=== PATIENT | female | born 1990 | race Caucasian/White ===

== ENCOUNTER 2019-07-13 11:00 | Inpatient (IN) | payer BC ==
[2019-07-14] MEDS ORDERED: LIDOCAINE 0.5% (PF) 5 MG/ML (50 ML SDV) SQ PRN (07:05)
[2019-07-14] MEDS ORDERED: METHYLERGONOVINE 0.2 MG/ML 1 ML AMP IM PRN (07:05)
[2019-07-14] MEDS ORDERED: OXYTOCIN 10 UNIT/ML 1 ML VIAL IM PRN (07:05)
[2019-07-14] MEDS ORDERED: CARBOPROST TROMETHAMINE 250 MCG/ML 1 ML AMP IM PRN (07:05)
[2019-07-14] MEDS ORDERED: TERBUTALINE 1 MG/ML VIAL SQ PRN (07:05)
[2019-07-14] MEDS ORDERED: OXYTOCIN 30 UNITS/500 ML NS 30 UNIT in SALINE 1 500ML.BAG IV SCH (07:15)
[2019-07-14 07:34] LABS: Basophils % (A) 0 %; Eosinophils # (A) 0.3 k/uL (0-0.7); Eosinophils % (A) 3 %; HCT 36.6 % (34.0-46.0); HGB 13.3 gm/dL (11.4-16.0); Lymphocytes # (A) 2.3 k/uL (1.0-4.8); Lymphocytes % (A) 21 %; MCH 32.7 pg (25.0-35.0); MCHC 36.3 g/dL (31.0-37.0); Mean Platelet Volume 8.4; Monocytes # (A) 0.6 k/uL (0-1.0); Monocytes % (A) 5 %; Neutrophils # (A) 7.6 k/uL (1.3-7.7); Neutrophils % (A) 69 %; Platelet Count 235 k/uL (150-450); RBC 4.07 m/uL (3.80-5.40); RDW 13.5 % (11.5-15.5)
[2019-07-14] MEDS: LACTATED RINGERS 1,000 ML IV SCH ×2 (07:35→21:53)
[2019-07-14] MEDS ORDERED: SIMETHICONE 80 MG CHEWABLE PO PRN (14:40)
[2019-07-14] MEDS ORDERED: ZOLPIDEM 5 MG TAB PO PRN (14:40)
[2019-07-14] MEDS ORDERED: diphenhydrAMINE 50 MG CAP PO PRN (14:40)
[2019-07-14] MEDS ORDERED: diphenhydrAMINE 25 MG CAP PO PRN (14:40)
[2019-07-14] MEDS ORDERED: LANOLIN CREAM 5 GM TUBE TOPICAL PRN (14:40)
[2019-07-14] MEDS ORDERED: BENZOCAINE/MENTHOL SPRAY 1 GM/SPRAY AEROSOL TOPICAL PRN (14:40)
[2019-07-14] MEDS ORDERED: WITCH HAZEL 1 EACH MED..PAD TOPICAL PRN (14:40)
[2019-07-14] MEDS ORDERED: HYDROCORTISONE 2.5% RECTAL CREAM 30 GM TUBE RECTAL PRN (14:40)
[2019-07-14] MEDS ORDERED: diphenhydrAMINE 50 MG/ML 1 ML VIAL IVP PRN ×2 (14:40)
[2019-07-14] MEDS ORDERED: OXYTOCIN 20 UNITS/1000 ML NS 1,000 ML IV SCH (14:45)
[2019-07-14] MEDS: ACETAMINOPHEN TAB 325 MG TAB PO PRN ×2 (16:16→21:31)
--- NOTE | 2019-07-14 16:29 | P.HPOB ---
History of Present Illness H&P Date: 07/14/19 Chief Complaint: Intrauterine at term: Induction of labor Patient is a 28-year-old at 40 weeks gestation who ryes for induction of labor. Her course has been unremarkable and she was feeling well at this time. Pertinent labs could A+ blood type Rh and it was negative, rubella immune, hepatitis B surface antigen/RPR/HIV and quad screening were all normal. Groupie strep was also negative. Questions were answered for regarding and induction of labor and at that time she had not planned on using a epidural. Pitocin augmentation of labor was initiated and artificial rupture membranes was clear fluid is noted. A category 1 tracing is noted and she was dilated approximately 2 cm at time of rupture. Past Medical History Past Medical History: No Reported History Additional Past Medical History / Comment(s): Hx gestational diabetes, hx of Asthma childhood, no asthma meds now, liver cyst. History of Any Multi-Drug Resistant Organisms: None Reported Past Surgical History: No Surgical Hx Reported Past Anesthesia/Blood Transfusion Reactions: No Reported Reaction Additional Past Anesthesia/Blood Transfusion Reaction / Comment(s): NO PRIOR SX HX Past Psychological History: No Psychological Hx Reported Smoking Status: Current every day smoker Past Alcohol Use History: None Reported Past Drug Use History: None Reported - Past Family History Brother(s) Family Medical History: Cancer, Hyperlipidemia Additional Family Medical History / Comment(s): testicular Mother Family Medical History: Hypertension Father Family Medical History: Hyperlipidemia Medications and Allergies Home Medications Medication Instructions Recorded Confirmed Type Pnv No.95/Ferrous Fum/Folic AC 1 each PO DAILY 11/05/17 07/14/19 History [ Multivitamin Tablet] Calcium Carbonate [Tums] 500 mg PO QID PRN 07/14/19 07/14/19 History Allergies Allergy/AdvReac Type Severity Reaction Status Date / Time egg Allergy Anaphylaxis Verified 11/12/17 06:08 ibuprofen [From Motrin] Allergy Rash/Hives Verified 11/12/17 06:08 Exam Osteopathic Statement: *. No significant issues noted on an osteopathic structural exam other than those noted in the History and Physical/Consult. Vital Signs Temp Pulse Resp BP 07/14/19 15:50 98.3 F 78 17 119/68 07/14/19 15:20 78 16 121/71 07/14/19 14:50 68 16 119/68 07/14/19 14:35 71 16 120/63 07/14/19 14:20 87 17 117/65 07/14/19 14:05 70 16 113/64 07/14/19 13:50 98.4 F 70 16 109/66 07/14/19 07:29 97.5 F L 85 16 117/68 Intake and Output 07/14/19 07/14/19 07/14/19 06:59 14:59 22:59 Other: # Voids 1 Weight 69.4 kg - OBG Physical Exam Breast: both: normal (no masses) Abdomen: bowel sounds normal, no diffuse tenderness, no bruit present, no guarding noted, no hepatomegaly, no splenomegaly, no mass Vulva: both: normal Vagina: normal moisture, no discharge Cervix: no lesion, no discharge Uterus: normal size, normal contour Adnexa: both: normal Anus/Rectum: normal perianal skin, no rectal mass, no hemorrhoids, heme negative Results Result Diagrams: 07/14/19 07:05 Abnormal Lab Results - Last 24 Hours (Table) 07/14/19 Range/Units 07:05 WBC 11.0 H (3.8-10.6) k/uL
--- NOTE | 2019-07-14 16:30 | P.PROBDLV ---
Vaginal Delivery Note - . Vaginal Delivery Note: Patient breast complete and pushing with spontaneous vaginal delivery of a viable male over a superficial perineal laceration. Following delivery of the head from left occiput anterior position nuchal cord 1 was easily reduced an anterior posterior shoulders were delivered with gentle downward and upward traction. Once this was completed mouth nares were bulb suctioned and was placed on mother's abdomen where the umbilical cord was clamped and cut in usual fashion. Nursery personnel was present and assumed care. Placenta was then delivered intact and Pitocin was added to the IV. scores were 9 and 9 at one and 5 minutes respectively and the weight was 7 lbs. 11 oz. Perineal laceration was reapproximated with interrupted 3-0 Vicryl suture. Mother and baby are currently stable findings delivery.
[2019-07-14] MEDS: SENNOSIDES-DOCUSATE SODIUM 1 EACH TAB PO SCH (21:53)
[2019-07-15] MEDS ORDERED: ACETAMINOPHEN TAB 325 MG TAB ONE (01:00)
[2019-07-15 07:28] LABS: Basophils % (A) 0 %; Eosinophils # (A) 0.1 k/uL (0-0.7); Eosinophils % (A) 1 %; HCT 34.2 % (34.0-46.0); HGB 11.5 gm/dL (11.4-16.0); Lymphocytes # (A) 2.8 k/uL (1.0-4.8); Lymphocytes % (A) 21 %; MCH 30.9 pg (25.0-35.0); MCHC 33.5 g/dL (31.0-37.0); MCV 92.2 fL (80.0-100.0); Mean Platelet Volume 8.2; Monocytes # (A) 0.6 k/uL (0-1.0); Monocytes % (A) 5 %; Neutrophils # (A) 9.4 k/uL (1.3-7.7); Neutrophils % (A) 71 %; Platelet Count 214 k/uL (150-450); RBC 3.72 m/uL (3.80-5.40); RDW 13.4 % (11.5-15.5); WBC 13.2 k/uL (3.8-10.6)
[2019-07-15] MEDS: SENNOSIDES-DOCUSATE SODIUM 1 EACH TAB PO SCH (08:09)
[2019-07-15] MEDS: ACETAMINOPHEN TAB 325 MG TAB PO PRN (08:09)
[2019-07-15 08:38] VITALS: BP 107/70; PULSE 59; RESP 16; TEMP 98.6
--- NOTE | 2019-07-15 08:43 | P.DS ---
Providers Date of admission: 07/14/19 06:47 Expected date of discharge: 07/15/19 Attending physician: Toi Enciso Primary care physician: Stated None Hospital Course: Radha is doing very well day 1. She's ablating, voiding and tolerating her diet. She voices no complaints and requests discharged home. Vital signs are stable and afebrile. Heart regular, lungs clear, extremities without pain. Abdomen soft and uterus is firm. Lochia is reported light. Assessment day 1. Plan discharged home follow up with me in 6 weeks. Other discharge instructions were thoroughly reviewed all questions are answered. Patient Condition at Discharge: Good Plan - Discharge Summary New Discharge Prescriptions: No Action Pnv No.95/Ferrous Fum/Folic AC [ Multivitamin Tablet] 1 each PO DAILY Calcium Carbonate [Tums] 500 mg PO QID PRN PRN Reason: Heartburn Discharge Medication List Pnv No.95/Ferrous Fum/Folic AC [ Multivitamin Tablet] 1 each PO DAILY 11/05/17 [History] Calcium Carbonate [Tums] 500 mg PO QID PRN 07/14/19 [History] Follow up Appointment(s)/Referral(s): Toi Enciso DO [Doctor of Osteopathic Medicine] - 6 Weeks Activity/Diet/Wound Care/Special Instructions: No heavy lifting, limit stairs and driving, and pelvic rest. If any high temperatures, heavy bleeding, or severe pain call my office Discharge Disposition: HOME SELF-CARE
== END 2019-07-15 15:25 | disposition home or self-care (01) | DRG 807 ==
LOC: 4FBP 07-14 06:47
PROVIDERS: ADMIT Obstetrics & Gynecology; ATTEND Obstetrics & Gynecology
PROC: 10E0XZZ Delivery of Products of Conception, External Approach (ICD-10-PCS; principal; 2019-07-14)
PROC: 0UQMXZZ Repair Vulva, External Approach (ICD-10-PCS; principal; 2019-07-14)
DX: O69.81X0 Labor and delivery complicated by cord around neck, without compression, not applicable or unspecified (principal); Z37.0 Single live birth; O70.9 Perineal laceration during delivery, unspecified; O99.334 Smoking (tobacco) complicating childbirth; F17.200 Nicotine dependence, unspecified, uncomplicated; Z3A.40 40 weeks gestation of pregnancy; Z86.32 Personal history of gestational diabetes; Z87.09 Personal history of other diseases of the respiratory system; Z88.6 Allergy status to analgesic agent; Z91.012 Allergy to eggs; Z82.49 Family history of ischemic heart disease and other diseases of the circulatory system; Z80.9 Family history of malignant neoplasm, unspecified
CPT/HCPCS: 85025; 86850; 86900; 86901

== ENCOUNTER → 2022-02-13 | Outpatient (CLI) | payer BC ==
--- NOTE | 2022-02-13 22:18 | CT ---
EXAMINATION TYPE: CT abdomen pelvis w con DATE OF EXAM: 02/13/2022 HISTORY: lower Abdominal pain for [address] DLP: 475.20mGycm Automated Exposure Control for Dose Reduction was Utilized. CONTRAST: CT scan of the abdomen and pelvis is performed with IV Contrast, patient injected with 70 mL of Isovu e 300. COMPARISON: None. FINDINGS: LUNG BASES: No significant abnormality is appreciated. LIVER/GB: No significant abnormality is appreciated. PANCREAS: No significant abnormality is seen. SPLEEN: No significant abnormality is seen. ADRENALS: No significant abnormality is seen. KIDNEYS: No significant abnormality is seen. BOWEL: Normal appearing appendix from base of cecum in the right lower quadrant. UTERUS/ADNEXA: Anteverted uterus. Normal size ovaries. Occasional scattered tiny pelvic phlebolith. LYMPH NODES: No greater than 1cm abdominal or pelvic lymph nodes are appreciated. OSSEOUS STRUCTURES: Transitional-type vertebra at lumbosacral junction. OTHER: No significant additional abnormality is seen. IMPRESSION: No significant acute finding is seen to account for patient's clinical symptoms.
== END | disposition home or self-care (01) ==
LOC: RADCTMAIN 15:16
PROVIDERS: ATTEND Family Medicine
DX: R10.9 Unspecified abdominal pain (principal)
CPT/HCPCS: 74177; Q9967

== ENCOUNTER 2022-06-02 14:07 | Emergency (ER) | payer BC, OTHER ==
[2022-06-02] MEDS ORDERED: diphenhydrAMINE 50 MG/ML 1 ML VIAL IVP STA (15:12)
[2022-06-02] MEDS ORDERED: SODIUM CHLORIDE 0.9% 1,000 ML IV STA (15:12)
[2022-06-02] MEDS ORDERED: SODIUM CHLORIDE 0.9% 500 ML 500 ML IV STA (15:12)
--- NOTE | 2022-06-02 15:20 | ED ---
Nausea/Vomiting/Diarrhea HPI - General Source: patient, RN notes reviewed, old records reviewed Mode of arrival: ambulatory Limitations: no limitations - History of Present Illness MD complaint: nausea, vomiting, diarrhea -: month(s) (1) Description of Vomiting: food contents, watery, bilious Description of Diarrhea: water Associated Abdominal Pain: No Consistency: intermittent Associated Symptoms: fever/chills <Gui Medina - Last Filed: 07/10/22 16:25> <Jossue Adkins - Last Filed: 07/27/22 12:50> - General Chief complaint: Nausea/Vomiting/Diarrhea Stated complaint: Vomiting Time Seen by Provider: 06/02/22 14:42 - History of Present Illness Initial comments: This is a nontoxic appearing 31-year-old female who presents to the emergency room with complaints of nausea vomiting diarrhea on and off for the past month. Occasional chills but no documented fever. She states that she will have several days of resolution, then her nausea vomiting and diarrhea recurs. No known sick contracts. She states that she is 13 weeks with her last menstrual period being February 28. Denies any abdominal or pelvic pain or vaginal bleeding. States was treated by [facility] urgent care 2 weeks ago for UTI but does not remember the name of the antibiotic. States that she had multiple episodes of vomiting while taking the medication. She is a history of asthma, gestational diabetes. Currently taking vitamins. No other medication on a daily basis. (Gui Medina) - Related Data Home Medications Medication Instructions Recorded Confirmed Pnv No.95/Ferrous Fum/Folic AC 1 each PO DAILY 11/05/17 07/14/19 [ Multivitamin Tablet] Calcium Carbonate [Tums] 500 mg PO QID PRN 07/14/19 07/14/19 Allergies Allergy/AdvReac Type Severity Reaction Status Date / Time egg Allergy Anaphylaxis Verified 06/02/22 14:11 ibuprofen [From Motrin] Allergy Rash/Hives Verified 06/02/22 14:11 Review of Systems ROS Other: All systems not noted in ROS Statement are negative. <Gui Medina - Last Filed: 07/10/22 16:25> ROS Other: All systems not noted in ROS Statement are negative. <Jossue Adkins - Last Filed: 07/27/22 12:50> ROS Statement: Those systems with pertinent positive or pertinent negative responses have been documented in the HPI. Past Medical History Past Medical History: Asthma Additional Past Medical History / Comment(s): Hx gestational diabetes, hx of Asthma childhood, no asthma meds now, liver cyst. History of Any Multi-Drug Resistant Organisms: None Reported Past Surgical History: No Surgical Hx Reported Past Anesthesia/Blood Transfusion Reactions: No Reported Reaction Additional Past Anesthesia/Blood Transfusion Reaction / Comment(s): NO PRIOR SX HX Past Psychological History: No Psychological Hx Reported Smoking Status: Former smoker Past Alcohol Use History: None Reported Past Drug Use History: None Reported - Past Family History Brother(s) Family Medical History: Cancer, Hyperlipidemia Additional Family Medical History / Comment(s): testicular Mother Family Medical History: Hypertension Father Family Medical History: Hyperlipidemia <Gui Medina - Last Filed: 07/10/22 16:25> General Exam Limitations: no limitations General appearance: alert, in no apparent distress Head exam: Present: atraumatic, normocephalic, normal inspection Eye exam: Present: normal appearance. Absent: scleral icterus, conjunctival injection, periorbital swelling ENT exam: Present: mucous membranes moist Neck exam: Present: full ROM. Absent: tenderness, meningismus, lymphadenopathy, thyromegaly Respiratory exam: Present: normal lung sounds bilaterally. Absent: respiratory distress, accessory muscle use Cardiovascular Exam: Present: tachycardia GI/Abdominal exam: Present: soft. Absent: distended, tenderness, guarding, rebound, rigid Extremities exam: Present: full ROM, normal capillary refill. Absent: tenderness, pedal edema Back exam: Present: normal inspection, full ROM. Absent: tenderness, CVA tenderness (R), CVA tenderness (L), rash noted Neurological exam: Present: alert, oriented X3, normal gait Psychiatric exam: Present: normal affect, normal mood Skin exam: Present: warm, dry, normal color. Absent: cyanosis, diaphoretic, petechiae, pallor <Gui Medina - Last Filed: 07/10/22 16:25> Course Vital Signs 06/02/22 06/02/22 06/02/22 14:08 16:50 17:41 Temperature 97.9 F 98.2 F Pulse Rate 118 H 88 76 Respiratory 20 16 16 Rate Blood Pressure 114/77 120/71 121/82 O2 Sat by Pulse 98 100 100 Oximetry 06/02/22 18:40 Temperature Pulse Rate 78 Respiratory 16 Rate Blood Pressure 134/87 O2 Sat by Pulse 98 Oximetry Medical Decision Making - Lab Data Result diagrams: 06/02/22 15:27 06/02/22 16:07 <Gui Medina - Last Filed: 07/10/22 16:25> - Lab Data Result diagrams: 06/02/22 15:27 06/02/22 16:07 <Jossue Adkins - Last Filed: 07/27/22 12:50> - Medical Decision Making Urinalysis shows no evidence of infection. There is mild leukocytosis likely from patient's persistent vomiting. Awaiting additional lab results. On reassessment patient has had no further vomiting no diarrhea in the emergency room. Abdomen is soft and nontender. She is with no complaints of abdominal pain or vaginal bleeding. Case was turned over to Dr. Adkins for evaluation of pending labs and disposition. (Gui Medina) Was patient admitted / discharged? Hospital course, mention meds given and ro christel, prescriptions, significant lab abnormalities, going to OR and other pertinent info. @ -Patient was endorsed to me by ED CAROLINA Medina (secondary to end of her shift) with the patient's labs still pending. Patient's labs were reviewed myself. Other than mild leukocytosis and mild hypoglycemia, the patient's labs are fairly unremarkable. Patient's UA does not show any evidence of infection. I do not suspect an emergent medical condition at this time. Patient's symptoms have improved while in the ED. Patient's tachycardia has resolved, and her vital signs are now stable/reassuring. Will discharge patient home. Undiagnosed new problem with uncertain prognosis? @ -No Drug Therapy requiring intensive monitoring for toxicity (Heparin, Nitro, Insulin, Cardizem)? @ -No Were any procedures done? @ -No Diagnosis/symptom? @ - nausea/vomiting/diarrhea Acute, or Chronic, or Acute on Chronic? @ -Acute Uncomplicated (without systemic symptoms) or Complicated (systemic symptoms)? @ -default Side effects of treatment? @ -No Exacerbation, Progression, or Severe Exacerbation? @ -No Poses a threat to life or bodily function? How? (Chest pain, USA, CA, pneumonia, PE, COPD, DKA, ARF, appy, cholecystitis, CVA, Diverticulitis, Homicidal, Suicidal, threat to staff... and all critical care pts) @ -No (Jossue Adkins) - Lab Data Lab Results 06/02/22 06/02/22 06/02/22 Range/Units 15:27 15:27 16:07 WBC 13.6 H (3.8-10.6) k/uL RBC 4.73 (3.80-5.40) m/uL Hgb 14.5 (11.4-16.0) gm/dL Hct 39.6 (34.0-46.0) % MCV 83.7 (80.0-100.0) fL MCH 30.6 (25.0-35.0) pg MCHC 36.6 (31.0-37.0) g/dL RDW 12.9 (11.5-15.5) % Plt Count 241 (150-450) k/uL MPV 8.4 Neutrophils % 82 % Lymphocytes % 14 % Monocytes % 3 % Eosinophils % 1 % Basophils % 0 % Neutrophils # 11.1 H (1.3-7.7) k/uL Lymphocytes # 1.9 (1.0-4.8) k/uL Monocytes # 0.4 (0-1.0) k/uL Eosinophils # 0.1 (0-0.7) k/uL Basophils # 0.0 (0-0.2) k/uL Hyperchromasia Slight Sodium 134 L (137-145) mmol/L Potassium 4.3 (3.5-5.1) mmol/L Chloride 105 (98-107) mmol/L Carbon Dioxide 21 L (22-30) mmol/L Anion Gap 8 mmol/L BUN 6 L (7-17) mg/dL Creatinine 0.44 L (0.52-1.04) mg/dL Est GFR (CKD-EPI)AfAm >90 (>60 ml/min/1.73 sqM) Est GFR (CKD-EPI)NonAf >90 (>60 ml/min/1.73 sqM) Glucose 72 L (74-99) mg/dL Calcium 9.0 (8.4-10.2) mg/dL Total Bilirubin 0.5 (0.2-1.3) mg/dL AST 34 (14-36) U/L ALT 40 H (4-34) U/L Alkaline Phosphatase 65 (38-126) U/L Total Protein 6.7 (6.3-8.2) g/dL Albumin 3.9 (3.5-5.0) g/dL HCG, Quant 57395.6 mIU/mL Urine Color Yellow Urine Appearance Clear (Clear) Urine pH 5.5 (5.0-8.0) Ur Specific [place] 1.015 (1.001-1.035) Urine Protein Trace H (Negative) Urine Glucose (UA) Negative (Negative) Urine Ketones Negative (Negative) Urine Blood Negative (Negative) Urine Nitrite Negative (Negative) Urine Bilirubin Negative (Negative) Urine Urobilinogen <2.0 (<2.0) mg/dL Ur Leukocyte Esterase Negative (Negative) Disposition Is patient prescribed a controlled substance at d/c from ED?: No <Gui Medina - Last Filed: 07/10/22 16:25> Is patient prescribed a controlled substance at d/c from ED?: No <Jossue Adkins - Last Filed: 07/27/22 12:50> Clinical Impression: Nausea vomiting and diarrhea Disposition: HOME SELF-CARE Instructions (If sedation given, give patient instructions): Acute Nausea and Vomiting (ED), Acute Diarrhea (ED) Referrals: Екатерина Turpin MD [Primary Care Provider] - 1-2 days
[2022-06-02 15:57] LABS: Appearance,Urine Clear (Clear); Bilirubin,Urine Negative (Negative); Blood,Urine Negative (Negative); Color,Urine Yellow; Glucose,Urine (UA) Negative (Negative); Ketones,Urine Negative (Negative); Leukocyte Esterase,Urine Negative (Negative); Nitrite,Urine Negative (Negative); PH, Urine 5.5 (5.0-8.0); Protein,Urine Trace (Negative); Specific Gravity,Urine 1.015 (1.001-1.035); Urobilinogen,Urine <2.0 mg/dL (<2.0)
[2022-06-02 16:15] LABS: Basophils % (A) 0 %; Eosinophils # (A) 0.1 k/uL (0-0.7); Eosinophils % (A) 1 %; HCT 39.6 % (34.0-46.0); HGB 14.5 gm/dL (11.4-16.0); Hyperchromasia Slight; Lymphocytes # (A) 1.9 k/uL (1.0-4.8); Lymphocytes % (A) 14 %; MCH 30.6 pg (25.0-35.0); MCHC 36.6 g/dL (31.0-37.0); MCV 83.7 fL (80.0-100.0); Mean Platelet Volume 8.4; Monocytes # (A) 0.4 k/uL (0-1.0); Monocytes % (A) 3 %; Neutrophils # (A) 11.1 k/uL (1.3-7.7); Neutrophils % (A) 82 %; Platelet Count 241 k/uL (150-450); RBC 4.73 m/uL (3.80-5.40); RDW 12.9 % (11.5-15.5); WBC 13.6 k/uL (3.8-10.6)
[2022-06-02 16:50] LABS: ALT 40 U/L (4-34); AST 34 U/L (14-36); African American GFR (CKD) >90 (>60 ml/min/1.73 sqM); Albumin 3.9 g/dL (3.5-5.0); Alkaline Phosphatase 65 U/L (38-126); Anion Gap 8 mmol/L; Blood Urea Nitrogen 6 mg/dL (7-17); Carbon Dioxide 21 mmol/L (22-30); Chloride 105 mmol/L (98-107); Glucose 72 mg/dL (74-99); Non-African American GFR(CKD) >90 (>60 ml/min/1.73 sqM); Potassium 4.3 mmol/L (3.5-5.1); Sodium 134 mmol/L (137-145); Total Bilirubin 0.5 mg/dL (0.2-1.3); Total Protein 6.7 g/dL (6.3-8.2)
[2022-06-02 17:02] VITALS: RESP 16; TEMP 98.2
[2022-06-02 18:20] LABS: HCG,Quantitative Serum 63879.6 mIU/mL
[2022-06-02 18:44] VITALS: BP 134/87; PULSE 78
== END 2022-06-02 18:44 | disposition home or self-care (01) ==
LOC: EC 14:07
DX: O21.9 Vomiting of pregnancy, unspecified (principal); O26.891 Other specified pregnancy related conditions, first trimester; R19.7 Diarrhea, unspecified; O99.511 Diseases of the respiratory system complicating pregnancy, first trimester; J45.909 Unspecified asthma, uncomplicated; Z3A.13 13 weeks gestation of pregnancy; Z91.012 Allergy to eggs; Z88.6 Allergy status to analgesic agent; Z87.891 Personal history of nicotine dependence
CPT/HCPCS: 36415; 80053; 85025; 81003; 84702; 99284; 96374; 96361; J1200

== ENCOUNTER 2023-06-27 06:02 | Emergency (ER) | payer BC, OTHER ==
[2023-06-27 06:16] VITALS: BP 128/83; PULSE 86; RESP 16; TEMP 98.1
--- NOTE | 2023-06-27 06:32 | ED ---
Allergic Reaction HPI - General Chief complaint: Allergic Reaction Stated complaint: Allergic reaction Time Seen by Provider: 06/27/23 06:12 Source: patient, RN notes reviewed Mode of arrival: ambulatory Limitations: no limitations - History of Present Illness Initial Comments: This is a 32-year-old female who presents to the emergency department for con cerns of an allergic reaction. States that when she woke up she had itching on her hands, arms, and chest. She then started to notice a rash that was spreading. Her throat feels scratchy, however she is not having any shortness of breath. She took Benadryl prior to arrival which was somewhat helpful. She has had similar allergic reactions in the past. Unsure what she may have come into contact with. MD Complaint: allergic reaction, hives - Related Data Home Medications Medication Instructions Recorded Confirmed Pnv No.95/Ferrous Fum/Folic AC 1 each PO DAILY 11/05/17 12/03/22 [ Multivitamin Tablet] Calcium Carbonate [Tums] 500 mg PO QID PRN 07/14/19 12/03/22 Acetaminophen [Tylenol] 650 mg PO Q4H PRN 12/03/22 12/03/22 Levocetirizine Dihydrochloride 5 mg PO DAILY 12/03/22 12/03/22 [Xyzal] Previous Rx's Medication Instructions Recorded Ibuprofen [Motrin] 600 mg PO Q6HR PRN #30 tab 12/04/22 Famotidine 40 mg PO DAILY 5 Days #5 tablet 06/27/23 predniSONE 50 mg PO DAILY 5 Days #5 tab 06/27/23 Allergies Allergy/AdvReac Type Severity Reaction Status Date / Time egg Allergy Anaphylaxis Verified 12/03/22 06:28 Milk Containing Products Allergy Itching Verified 06/27/23 06:08 (Dairy) [Dairy] nickel Allergy Rash/Hives Verified 06/27/23 06:08 Review of Systems ROS Statement: Those systems with pertinent positive or pertinent negative responses have been documented in the HPI. ROS Other: All systems not noted in ROS Statement are negative. Past Medical History Past Medical History: Asthma Additional Past Medical History / Comment(s): Hx gestational diabetes, hx of Asthma childhood, no asthma meds now, liver cyst. History of Any Multi-Drug Resistant Organisms: None Reported Past Surgical History: No Surgical Hx Reported Past Anesthesia/Blood Transfusion Reactions: No Reported Reaction Additional Past Anesthesia/Blood Transfusion Reaction / Comment(s): NO PRIOR SX HX Past Psychological History: No Psychological Hx Reported Smoking Status: Former smoker Past Alcohol Use History: None Reported Past Drug Use History: None Reported - Past Family History Brother(s) Family Medical History: Cancer, Hyperlipidemia Additional Family Medical History / Comment(s): testicular Mother Family Medical History: Hypertension Father Family Medical History: Hyperlipidemia General Exam Limitations: no limitations General appearance: alert, in no apparent distress Head exam: Present: atraumatic, normocephalic, normal inspection ENT exam: Present: normal oropharynx, mucous membranes moist, TM's normal bilaterally Respiratory exam: Present: normal lung sounds bilaterally. Absent: respiratory distress, wheezes, rales, rhonchi, stridor Cardiovascular Exam: Present: regular rate, normal rhythm, normal heart sounds. Absent: systolic murmur, diastolic murmur, rubs, gallop, clicks Neurological exam: Present: alert, oriented X3, CN II-XII intact Psychiatric exam: Present: normal affect, normal mood Skin exam: Present: other (Urticaria to the bilateral upper extremities and chest) Course Vital Signs 06/27/23 06:04 Temperature 98.1 F Pulse Rate 86 Respiratory 16 Rate Blood Pressure 128/83 O2 Sat by Pulse 98 Oximetry Medical Decision Making - Medical Decision Making This is a 32-year-old female who presents to the emergency department for a rash and concerns of an allergic reaction. Was pt. sent in by a medical professional or institution? @ -No Did you speak to anyone other than the patient for history? @ -No Did you review nursing and triage notes? @ -Yes, and I agree, it is accurate with regards to the patient's symptoms. Were old charts reviewed? @ -No Differential Diagnosis? @ -Differential Rash: [place], measles, Lyme disease, erythema multiforme, cellulitis, toxic shock syndrome, Vicente Kolton syndrome, Kawasaki disease, heidi mountain spotted fever, contact dermatitis, allergic dermatitis, measles, mumps, rubella, varicella, meningococcal disease, drug reaction, coxsackievirus, This is not meant to be an all-inclusive list. EKG interpreted by me (3pts min.)? @ -Not obtained X-rays interpreted by me (1pt min.)? @ -Not obtained CT interpreted by me (1pt min.)? @ -Not obtained U/S interpreted by me (1pt. min.)? @ -Not obtained What testing was considered but not performed? (CT, X-rays, U/S, labs)? Why? @ -None What meds were considered but not given? Why? @ -None Did you discuss the management of the patient with other professionals? @ -No Did you reconcile home meds? @ -No Was smoking cessation discussed for >3mins.? @ -No Was critical care preformed (if so, how long)? @ -No Were there social determinants of health that impacted care today? How? (Homelessness, low income, unemployed, alcoholism, drug addiction, transportation, low edu. Level, literacy, decrease access to med. care, retirement, rehab)? @ -No Was there de-escalation of care discussed even if they declined? (Discuss DNR or withdrawal of care, Hospice)? @ -No What co-morbidities impacted this encounter? (DM, HTN, Smoking, COPD, CAD, Cancer, CVA, Hep., AIDS, mental health diagnosis, sleep apnea, morbid obesity)? @ -None Was patient admitted / discharged? @ -Discharged. Physical examination consistent with urticaria. She was given an allergy cocktail consisting of Solu-Medrol, Benadryl, and famotidine. Triamcinolone cream was provided as well. She did have improvement in symptoms following medication administration. Prescription for additional 5-day course of prednisone and famotidine provided with dosing instructions reviewed. Advised taking this with an [id number] antihistamine such as Benadryl. Also advised that she can apply the cream 3-4 times daily as needed. Patient discharged home in stable condition. Undiagnosed new problem with uncertain prognosis? @ -None Drug Therapy requiring intensive monitoring for toxicity (Heparin, Nitro, Insulin, Cardizem)? @ -None Were any procedures done? @ -None Diagnosis/symptom? @ -Urticaria Acute, or Chronic, or Acute on Chronic? @ -Acute Uncomplicated (without systemic symptoms) or Complicated (systemic symptoms)? @ -Uncomplicated Side effects of treatment? @ -None Exacerbation, Progression, or Severe Exacerbation] @ -Not applicable Poses a threat to life or bodily function? @ -No Return precautions reviewed in depth, the patient is instructed to return to the emergency department with any new, worsening, or concerning symptoms. Patient verbalized understanding. This case was discussed in detail with the attending ED physician, Dr. Gamble. Presentation, findings, and treatment plan discussed in detail as well. Disposition Clinical Impression: Urticaria Disposition: HOME SELF-CARE Instructions (If sedation given, give patient instructions): Urticaria (ED) Additional Instructions: Return to the emergency department with any new, worsening, or concerning symptoms. Take the prednisone and famotidine daily for 5 days. Continue to take an antihistamine such as Benadryl daily as well. You can use the triamcinolone cream provided 3-4 times daily as needed. Do not apply this to the face. Follow up with your primary care provider in 1-2 days. Prescriptions: Famotidine 40 mg PO DAILY 5 Days #5 tablet predniSONE 50 mg PO DAILY 5 Days #5 tab Is patient prescribed a controlled substance at d/c from ED?: No Referrals: Екатерина Turpin MD [Primary Care Provider] - 1-2 days Time of Disposition: 06:55
[2023-06-27] MEDS: methylPREDNISolone SOD SUCCI 125 MG/2 ML VIAL IM ONE (06:33)
[2023-06-27] MEDS: diphenhydrAMINE 50 MG/ML 1 ML VIAL IM STA (06:33)
[2023-06-27] MEDS: FAMOTIDINE 20 MG TAB PO STA (06:34)
[2023-06-27] MEDS: TRIAMCINOLONE 0.1% CREAM 80 GM TUBE TOPICAL STA (06:34)
== END 2023-06-27 07:06 | disposition home or self-care (01) ==
LOC: EC 06:02
DX: L50.9 Urticaria, unspecified (principal); Z91.012 Allergy to eggs; Z91.011 Allergy to milk products; Z88.8 Allergy status to other drugs, medicaments and biological substances; Z87.891 Personal history of nicotine dependence
CPT/HCPCS: 99283; 96372 ×2; J1200; J2919